=== PATIENT | female | born 1980 | race Caucasian/White ===

== ENCOUNTER → 2018-11-15 16:07 | Outpatient (CLI) | payer BC ==
[2018-11-15 16:43] LABS: APPEARANCE HAZY (CLEAR); BILIRUBIN NEGATIVE (NEGATIVE); COLOR YELLOW (YELLOW); GLUCOSE NEGATIVE (NEGATIVE); KETONE NEGATIVE (NEGATIVE); NITRITE POSITIVE (NEGATIVE); PROTEIN NEGATIVE (NEGATIVE); UROBILINOGEN NORMAL (NORMAL)
[2018-11-15 16:44] LABS: RED CELLS - URINE 0-5 /hpf (0-5); WHITE CELLS - URINE 25-50 /hpf (0-5)
[2018-11-15 16:45] LABS: BACTERIA MODERATE /hpf (NONE SEEN); EPITHELIAL CELLS 0-5 /hpf (0-5)
== END | disposition home or self-care (01) ==
LOC: D.LAB 16:07
PROVIDERS: ATTEND Urology
DX: R10.9 Unspecified abdominal pain (principal)

== ENCOUNTER → 2019-02-15 19:20 | Outpatient (CLI) | payer BC | END | disposition home or self-care (01) | LOC: D.LABREF 19:20 | PROVIDERS: ATTEND Urology | DX: R82.5 Elevated urine levels of drugs, medicaments and biological substances (principal); D72.829 Elevated white blood cell count, unspecified; R31.9 Hematuria, unspecified ==

== ENCOUNTER → 2019-08-16 13:37 | Outpatient (CLI) | payer BC ==
[2019-08-16 14:36] LABS: APPEARANCE SL CLDY (CLEAR); COLOR YELLOW (YELLOW)
[2019-08-16 14:37] LABS: BILIRUBIN NEGATIVE (NEGATIVE); GLUCOSE NEGATIVE (NEGATIVE); KETONE NEGATIVE (NEGATIVE); NITRITE POSITIVE (NEGATIVE); PROTEIN NEGATIVE (NEGATIVE); UROBILINOGEN NORMAL (NORMAL)
[2019-08-16 14:38] LABS: BACTERIA MANY /hpf (NEGATIVE); BASOPHILS 0.2 % (0-2); EOSINOPHILS 0.8 % (0-7); EPITHELIAL CELLS 0-5 /hpf (0-5); HEMOGLOBIN 14.4 g/dL (12-16); IMMATURE GRANULOCYTES 0.2 % (0-5); LYMPHOCYTES 20.8 % (15-50); MCH 31.2 pg (26.0-34.0); MCHC 32.7 g/dL (31.0-37.0); MCV 95.4 fL (80.0-100.0); MEAN PLATELET VOLUME 9.8 fL (7.4-10.4); MONOCYTES 4.4 % (2-11); NEUTROPHILS 73.6 % (40-80); RBC 4.61 10x6/uL (4.00-5.40); RDW 13.3 % (11.5-14.5); RED CELLS - URINE 0-5 /hpf (0-5); WBC 8.4 10x3/uL (4.8-10.8); WHITE CELLS - URINE 0-5 /hpf (NEGATIVE)
[2019-08-16 14:46] LABS: PLATELET COUNT 320 10x3/uL (130-400)
[2019-08-16 14:48] LABS: ALBUMIN 3.9 g/dL (3.4-5.0); ANION GAP 11.1 mmol/L (8-16); BILIRUBIN - TOTAL 0.33 mg/dL (0.2-1.3); CALCIUM 9.1 mg/dL (8.5-10.1); CARBON DIOXIDE 30.3 mmol/L (21.0-32.0); CHOL - HDL RATIO 3.9 ratio (2.3-4.1); CREATININE - SERUM 0.9 mg/dL (0.6-1.3); LDL-HDL RATIO 2.2 ratio (1.5-3.5); MAGNESIUM - SERUM 1.9 mg/dL (1.8-2.4); POTASSIUM - SERUM 3.4 mmol/L (3.5-5.1); PROTEIN - SERUM 7.4 g/dL (6.4-8.2); THYROID STIMULATING HORMONE 3.5 uIU/mL (0.36-3.74)
== END | disposition home or self-care (01) ==
LOC: EDSTATUS 13:36 → D.LAB 13:36
PROVIDERS: ATTEND Internal Medicine
DX: R25.2 Cramp and spasm (principal)